=== PATIENT | male | born 1985 | race Caucasian/White ===

== ENCOUNTER 2025-03-20 21:21 | Emergency (ER) | payer BC, OTHER ==
[~2025-03-20] VITALS: Ht 180.3 cm; Wt 114.0 kg
--- OUTSIDE RECORDS SUMMARY | 2025-03-20 21:23 | XMS ---
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 E.DLeonor VISIT COUNT (12 MO.) [facility] TOTAL 1 NOTE: Visits indicate total known visits. ED/UCC VISIT TRACKING (12 MO.) 03/20/2025 21:22 [facility] Mel[facility] OR TYPE: Emergency COMPLAINT: - EXTERMITY PAIN INPATIENT VISIT TRACKING (12 MO.) No inpatient visits to display in this time frame [email or web address]
[2025-03-20 21:45] LABS: BASOPHILS 0.3 % (0.2-1.2); EOSINOPHILS 2.2 % (0.8-7.0); LYMPHOCYTES 17.3 % (21.8-53.1); MCH 28.5 PG (25.7-32.2); MCHC 33.2 g/dL (32.3-36.5); MCV 85.9 fL (79.0-92.2); MONOCYTES 9.7 % (5.3-12.2); NEUTROPHILS 70.0 % (34.0-67.9); RBC 4.81 M/uL (4.63-6.08)
[2025-03-20] MEDS ORDERED: MORPHINE SULFATE 4 MG/ML VIAL IV ONE (21:45)
[2025-03-20] MEDS ORDERED: SODIUM CHLORIDE 0.9% 1,000 ML IV ONE (21:45)
[2025-03-20] MEDS ORDERED: PANTOPRAZOLE SODIUM 40 MG/10 ML VIAL IV ONE (21:45)
[2025-03-20 22:02] LABS: ALT (SGPT) 62.0 U/L (14-59); AST (SGOT) 20.0 U/L (15-37); GLOMERULAR FILTRATION RATE,EST 109.0 mL/min (>60); PROTEIN, TOTAL 7.5 g/dL (6.4-8.2); UREA NITROGEN 21.0 mg/dL (7-18)
[2025-03-20 22:48] LABS: ABO O; ANTIBODY SCREEN NEGATIVE; RH POSITIVE
[2025-03-20] MEDS ORDERED: CYCLOBENZAPRINE10 MG PO (23:06)
[2025-03-20] MEDS ORDERED: CYCLOBENZAPRINE HCL 10 MG HOME.PACK PO ONE (23:15)
[2025-03-20] MEDS ORDERED: ONDANSETRON 4 MG HOME.PACK SL ONE (23:15)
[2025-03-20 23:19] VITALS: BP 142/85
== END 2025-03-20 23:19 | disposition home or self-care (01) ==
LOC: ED 21:21
PROVIDERS: Family Medicine
DX: K22.6 Gastro-esophageal laceration-hemorrhage syndrome (principal); S80.12XA Contusion of left lower leg, initial encounter; I10 Essential (primary) hypertension; X58.XXXA Exposure to other specified factors, initial encounter
CPT/HCPCS: 80053; 83690; 85025; 85379; 86850; 86900; 86901; 96361; 96374; 96375; 99284-25; A9270; J2270; J2405; J2470; J7030

== ENCOUNTER 2025-04-22 06:26 | Emergency (ER) | payer BC, OTHER ==
[~2025-04-22] VITALS: Ht 180.3 cm; Wt 114.0 kg
[~2025-04-22 06:26] MED LIST: CYCLOBENZAPRINE10 MG PO
[2025-04-22 07:22] LABS: INFLUENZA B NAA NEGATIVE (NEGATIVE); RESPIRATORY SYNCYTIAL VIR NAA NEGATIVE (NEGATIVE)
[2025-04-22] MEDS ORDERED: BENZONATATE100 MG PO (07:41)
[2025-04-22] MEDS ORDERED: NASAL DECONGEST30 MG PO (07:41)
[2025-04-22] MEDS ORDERED: BENZONATATE 100 MG CAP PO ONE (07:45)
[2025-04-22] MEDS ORDERED: PSEUDOEPHEDRINE HCL 30 MG TAB PO ONE (07:45)
[2025-04-22] MEDS ORDERED: CYCLOBENZAPRINE HCL 10 MG TAB PO ONE (07:45)
[2025-04-22 07:53] VITALS: BP 127/83
[2025-04-26] MEDS ORDERED: ACYCLOVIR800 MG PO (12:05)
[2025-04-26] MEDS ORDERED: PREDNISONE20 MG PO (12:05)
== END 2025-04-22 07:53 | disposition home or self-care (01) ==
LOC: ED 06:26
PROVIDERS: Family Medicine
DX: B34.9 Viral infection, unspecified (principal); I10 Essential (primary) hypertension
CPT/HCPCS: 87502; 87651; 99283; A9270; U0002